=== PATIENT | female | born 1935 | race African-American/Black ===

== ENCOUNTER 2021-09-09 12:03 | Inpatient (IN) | payer BC, OTHER ==
[2021-09-09 12:57] VITALS: BMI 20.5
[2021-09-09] MEDS ORDERED: MAGNESIUM CITRATE 300 ML BOTTLE PO PRN (13:27)
[2021-09-09] MEDS ORDERED: MENTHOL/PHENOL 1 EACH UD MM PRN (13:27)
[2021-09-09] MEDS ORDERED: ONDANSETRON *ODT* 4 MG TABLET SL PRN (13:27)
[2021-09-09] MEDS ORDERED: ACETAMINOPHEN 325 MG TABLET (FP) PO PRN ×2 (13:27)
[2021-09-09] MEDS ORDERED: MAGNESIUM HYDROX 2400MG/30ML ORAL SUSPENSION 30 ML CUP PO PRN (13:27)
[2021-09-09] MEDS ORDERED: MAG HYDROX/AL HYDROX/SIMETH 30 ML UNIT-DOSE CUP PO PRN (13:27)
[2021-09-09] MEDS ORDERED: BISMUTH SUBSALICYLATE 524 MG/30 ML PO PRN (13:27)
[2021-09-09] MEDS: hydrOXYzine PAMOATE 25 MG CAPSULE (FP) PO SCH ×3 (17:05→22:52)
[2021-09-09] MEDS: PANTOPRAZOLE 20 MG TABLET PO SCH (18:02)
[2021-09-09] MEDS: PRENATAL VITAMINS W/ FOLIC ACID TABLET (FP) PO SCH (18:02)
[2021-09-09] MEDS: THIAMINE HCL 100 MG TABLET (FP) PO SCH (22:50)
[2021-09-09] MEDS: MELATONIN 5 MG TABLETS PO SCH (22:50)
[2021-09-10] MEDS: hydrOXYzine PAMOATE 25 MG CAPSULE (FP) PO SCH ×5 (06:08→22:28)
[2021-09-10] MEDS: PANTOPRAZOLE 20 MG TABLET PO SCH (10:35)
[2021-09-10] MEDS: PRENATAL VITAMINS W/ FOLIC ACID TABLET (FP) PO SCH (10:35)
[2021-09-10] MEDS: MELATONIN 5 MG TABLETS PO SCH (22:21)
[2021-09-10] MEDS: THIAMINE HCL 100 MG TABLET (FP) PO SCH (22:21)
[2021-09-11] MEDS: hydrOXYzine PAMOATE 25 MG CAPSULE (FP) PO SCH ×3 (06:49→14:15)
[2021-09-11] MEDS: PANTOPRAZOLE 20 MG TABLET PO SCH (10:27)
[2021-09-11] MEDS: PRENATAL VITAMINS W/ FOLIC ACID TABLET (FP) PO SCH (10:27)
[2021-09-11 12:39] VITALS: BP 122/76; PULSE 64; TEMP 96.4
[2021-09-11 13:33] LABS: HEMOGLOBIN 10.9 GM/dL (10.7-15.3); MCH 29.6 pg (25.7-33.7); MCHC 33.1 g/dl (32.0-36.0); MEAN CELL VOLUME 89.5 fl (80-96); MEAN PLT VOLUME 8.3 fl (7.5-11.1); PLATELET COUNT 201 10^3/uL (134-434); RBC 3.69 M/mm3 (3.60-5.2); RDW 16.8 % (11.6-15.6); WHITE BLOOD COUNT 5.3 K/mm3 (4.0-10.0)
[2021-09-11 13:38] LABS: CALCIUM 8.7 mg/dL (8.5-10.1)
[2021-09-11 13:39] LABS: ALBUMIN 2.8 g/dl (3.4-5.0); BLOOD UREA NITROGEN 15.5 mg/dL (7-18)
[2021-09-11 13:42] LABS: CREATININE 1.2 mg/dL (0.55-1.3)
[2021-09-11 13:43] LABS: BILIRUBIN,TOTAL 0.8 mg/dL (0.2-1)
[2021-09-11 13:44] LABS: TOT PROT 6.3 g/dl (6.4-8.2)
== END 2021-09-11 15:47 | disposition other institution (70) | DRG 897 ==
LOC: YASAS 12:03 → UNDOADMIN 14:05 → Y6N 14:05 → Y3N 14:34
PROVIDERS: ADMIT Allergy & Immunology; ATTEND Allergy & Immunology
PROC: HZ2ZZZZ Detoxification Services for Substance Abuse Treatment (ICD-10-PCS; principal; 2021-09-09)
DX: F10.230 Alcohol dependence with withdrawal, uncomplicated (principal); I10 Essential (primary) hypertension; H91.93 Unspecified hearing loss, bilateral; K21.9 Gastro-esophageal reflux disease without esophagitis; M40.04 Postural kyphosis, thoracic region; R63.4 Abnormal weight loss; Z68.20 Body mass index [BMI] 20.0-20.9, adult; Z86.11 Personal history of tuberculosis; Z86.19 Personal history of other infectious and parasitic diseases; Z99.89 Dependence on other enabling machines and devices; Z87.891 Personal history of nicotine dependence; Z88.0 Allergy status to penicillin
CPT/HCPCS: 36415; 71046-TC-FY; 80053; 85027; 86780; 93005; 93010; C9803; U0003; U0005

== ENCOUNTER 2021-09-11 16:00 | Inpatient (IN) | payer BC, OTHER ==
[2021-09-11] MEDS ORDERED: MAG HYDROX/AL HYDROX/SIMETH 30 ML UNIT-DOSE CUP PO PRN (17:06)
[2021-09-11] MEDS ORDERED: MENTHOL/PHENOL 1 EACH UD MM PRN (17:06)
[2021-09-11] MEDS ORDERED: MAGNESIUM HYDROX 2400MG/30ML ORAL SUSPENSION 30 ML CUP PO PRN (17:06)
[2021-09-11] MEDS ORDERED: MAGNESIUM CITRATE 300 ML BOTTLE PO PRN (17:06)
[2021-09-11] MEDS ORDERED: IBUPROFEN 400 MG TABLET (FP) PO PRN (17:06)
[2021-09-11] MEDS ORDERED: LOPERAMIDE HCL 2 MG CAPSULE PO PRN (17:06)
[2021-09-11] MEDS ORDERED: ACETAMINOPHEN 325 MG TABLET (FP) PO PRN (17:06)
[2021-09-11] MEDS: MELATONIN 5 MG TABLETS PO SCH (21:46)
[2021-09-11] MEDS: THIAMINE HCL 100 MG TABLET (FP) PO SCH (21:46)
[2021-09-12] MEDS: PRENATAL VITAMINS W/ FOLIC ACID TABLET (FP) PO SCH (10:39)
[2021-09-12] MEDS: PANTOPRAZOLE 20 MG TABLET PO SCH (10:39)
[2021-09-12] MEDS: MELATONIN 5 MG TABLETS PO SCH (21:41)
[2021-09-12] MEDS: THIAMINE HCL 100 MG TABLET (FP) PO SCH (21:41)
[2021-09-13] MEDS: PRENATAL VITAMINS W/ FOLIC ACID TABLET (FP) PO SCH (10:40)
[2021-09-13] MEDS: PANTOPRAZOLE 20 MG TABLET PO SCH (10:40)
[2021-09-13] MEDS: MELATONIN 5 MG TABLETS PO SCH (21:50)
[2021-09-13] MEDS: THIAMINE HCL 100 MG TABLET (FP) PO SCH (21:50)
[2021-09-14] MEDS: PRENATAL VITAMINS W/ FOLIC ACID TABLET (FP) PO SCH (10:29)
[2021-09-14] MEDS: PANTOPRAZOLE 20 MG TABLET PO SCH (10:29)
[2021-09-14] MEDS: MELATONIN 5 MG TABLETS PO SCH (21:16)
[2021-09-14] MEDS: THIAMINE HCL 100 MG TABLET (FP) PO SCH (21:16)
[2021-09-15] MEDS: PRENATAL VITAMINS W/ FOLIC ACID TABLET (FP) PO SCH (09:37)
[2021-09-15] MEDS: PANTOPRAZOLE 20 MG TABLET PO SCH (09:37)
[2021-09-15] MEDS: BISMUTH SUBSALICYLATE 262 MG/15 ML BTL PO PRN (12:53)
[2021-09-15] MEDS ORDERED: PHENAZOPYRIDINE HCL 100 MG TABLET (FP) PO ONE (13:00)
[2021-09-15] MEDS: MELATONIN 5 MG TABLETS PO SCH (21:49)
[2021-09-15] MEDS: THIAMINE HCL 100 MG TABLET (FP) PO SCH (21:49)
[2021-09-16] MEDS: BISMUTH SUBSALICYLATE 262 MG/15 ML BTL PO PRN (09:40)
[2021-09-16] MEDS: PRENATAL VITAMINS W/ FOLIC ACID TABLET (FP) PO SCH (09:40)
[2021-09-16] MEDS: PANTOPRAZOLE 20 MG TABLET PO SCH (09:40)
[2021-09-16] MEDS: THIAMINE HCL 100 MG TABLET (FP) PO SCH (22:10)
[2021-09-16] MEDS: MELATONIN 5 MG TABLETS PO SCH (22:10)
[2021-09-17] MEDS: PRENATAL VITAMINS W/ FOLIC ACID TABLET (FP) PO SCH (10:36)
[2021-09-17] MEDS: PANTOPRAZOLE 20 MG TABLET PO SCH (10:36)
[2021-09-17] MEDS: MELATONIN 5 MG TABLETS PO SCH (22:06)
[2021-09-17] MEDS: THIAMINE HCL 100 MG TABLET (FP) PO SCH (22:06)
[2021-09-18] MEDS: PANTOPRAZOLE 20 MG TABLET PO SCH (10:36)
[2021-09-18] MEDS: PRENATAL VITAMINS W/ FOLIC ACID TABLET (FP) PO SCH (10:36)
[2021-09-18] MEDS: BISMUTH SUBSALICYLATE 262 MG/15 ML BTL PO PRN (10:37)
[2021-09-18] MEDS: MELATONIN 5 MG TABLETS PO SCH (21:11)
[2021-09-18] MEDS: THIAMINE HCL 100 MG TABLET (FP) PO SCH (21:13)
[2021-09-19] MEDS: PRENATAL VITAMINS W/ FOLIC ACID TABLET (FP) PO SCH (11:04)
[2021-09-19] MEDS: PANTOPRAZOLE 20 MG TABLET PO SCH (11:05)
[2021-09-19] MEDS: MELATONIN 5 MG TABLETS PO SCH (21:27)
[2021-09-19] MEDS: THIAMINE HCL 100 MG TABLET (FP) PO SCH (21:27)
[2021-09-20] MEDS: PRENATAL VITAMINS W/ FOLIC ACID TABLET (FP) PO SCH (10:39)
[2021-09-20] MEDS: PANTOPRAZOLE 20 MG TABLET PO SCH (10:39)
[2021-09-20] MEDS: SODIUM CHLORIDE NASAL SPRAY 44 ML BOTTLE NS PRN (15:59)
[2021-09-20] MEDS: THIAMINE HCL 100 MG TABLET (FP) PO SCH (22:04)
[2021-09-20] MEDS: MELATONIN 5 MG TABLETS PO SCH (22:04)
[2021-09-21 08:10] VITALS: TEMP 97.1
[2021-09-21] MEDS: SODIUM CHLORIDE NASAL SPRAY 44 ML BOTTLE NS PRN ×2 (08:55→19:04)
[2021-09-21] MEDS: PRENATAL VITAMINS W/ FOLIC ACID TABLET (FP) PO SCH (10:29)
[2021-09-21] MEDS: PANTOPRAZOLE 20 MG TABLET PO SCH (10:30)
[2021-09-21 17:04] LABS: EPI CELLS 28 /uL (0-25.1); HYALINE CASTS 1 /uL (0-3.1); PH,URINE 7.5 (5.0-8.0); URINE APPEARANCE CLEAR; URINE BACTERIA 345 /uL (0-1359); URINE BILIRUBIN NEGATIVE (NEGATIVE); URINE COLOR YELLOW; URINE GLUCOSE (UA) NEGATIVE (NEGATIVE); URINE KETONE NEGATIVE (NEGATIVE); URINE LEUK ESTERASE 2+ (NEGATIVE); URINE NITRITE NEGATIVE (NEGATIVE); URINE PROTEIN NEGATIVE (NEGATIVE); URINE RBC 2 /uL (0-23.9); URINE WBC 29 /uL (0-25.8)
[2021-09-21] MEDS: THIAMINE HCL 100 MG TABLET (FP) PO SCH (21:14)
[2021-09-21] MEDS: MELATONIN 5 MG TABLETS PO SCH (21:14)
[2021-09-22 08:12] VITALS: BP 119/56; PULSE 71
[2021-09-22] MEDS: PRENATAL VITAMINS W/ FOLIC ACID TABLET (FP) PO SCH (09:38)
[2021-09-22] MEDS: PANTOPRAZOLE 20 MG TABLET PO SCH (09:38)
== END 2021-09-22 11:45 | disposition home or self-care (01) | DRG 895 ==
LOC: YASAS 16:00 → Y5N 16:02
PROVIDERS: ADMIT Allergy & Immunology; ATTEND Allergy & Immunology
PROC: HZ42ZZZ Group Counseling for Substance Abuse Treatment, Cognitive-Behavioral (ICD-10-PCS; principal; 2021-09-11)
DX: F10.20 Alcohol dependence, uncomplicated (principal); Z68.1 Body mass index [BMI] 19.9 or less, adult; I10 Essential (primary) hypertension; B18.2 Chronic viral hepatitis C; R63.4 Abnormal weight loss; K21.9 Gastro-esophageal reflux disease without esophagitis; H91.93 Unspecified hearing loss, bilateral; M40.04 Postural kyphosis, thoracic region; N39.498 Other specified urinary incontinence; R26.2 Difficulty in walking, not elsewhere classified; Z99.89 Dependence on other enabling machines and devices; Z86.11 Personal history of tuberculosis
CPT/HCPCS: 81003